=== PATIENT | male | born 1980 | race Asian ===

== ENCOUNTER 2019-06-19 03:51 | Emergency (ER) | payer OTHER ==
[~2019-06-19] VITALS: Ht 180.3 cm; Wt 74.8 kg
[2019-06-19 04:00] VITALS: Ht 180.3 cm; Wt 74.8 kg
[2019-06-19 06:11] VITALS: BP 106/68
== END 2019-06-19 06:11 | disposition home or self-care (01) ==
LOC: ED 03:51
DX: S01.81XA Laceration without foreign body of other part of head, initial encounter (principal); R55 Syncope and collapse; J11.1 Influenza due to unidentified influenza virus with other respiratory manifestations; W18.30XA Fall on same level, unspecified, initial encounter; Y93.89 Activity, other specified; Y92.89 Other specified places as the place of occurrence of the external cause; Y99.8 Other external cause status
CPT/HCPCS: 87804; Q0092